=== PATIENT | male | born 1930 | race Caucasian/White ===

== ENCOUNTER 2017-04-28 13:31 | Inpatient (IN) | payer MEDICARE ==
[~2017-04-28] VITALS: Ht 172.7 cm; Wt 63.3 kg
[~2017-04-28 13:31] MED LIST: ASPIRIN325 MG PO; CEFTIN250 MG/5 M GT; COUMADIN2 MG PO; COUMADIN7.5 MG PO; DIGOXIN0.125 MG/2 GT; FLOMAX 0.4 MG0.4 MG PO; IMDUR ER TAB 3030 MG GT; ISOSORBIDE DINIT5 MG PO; LASIX40 MG PO; LISINOPRIL10 MG GT; LOPRESSOR 25 MG25 MG GT; PLAVIX 75 MG TA75 MG PO; PRILOSEC OTC20 MG PO; RAMIPRIL2.5 MG PO; SIMVASTATIN20 MG PO; ZOCOR 40 MG TAB40 MG GT; ZYRTEC10 M3 PO
[2017-04-28 16:01] LABS: HEMOGLOBIN 10.6 gm/dl (14.0-17.5); RED BLOOD COUNT 4.28 M/UL (4.20-5.50); WHITE BLOOD COUNT 19.3 K/UL (4.5-11.0)
[2017-04-28 17:49] LABS: BUN/CREATININE RATIO 61 (0-10)
[2017-04-28] MEDS ORDERED: JEVITY 1.2 CA1000 ML GT (22:06)
[2017-04-28] MEDS ORDERED: FLOMAX 0.4 MG0.4 MG PO (22:07)
[2017-04-29 06:04] LABS: HEMOGLOBIN 10.2 gm/dl (14.0-17.5); RED BLOOD COUNT 4.06 M/UL (4.20-5.50); WHITE BLOOD COUNT 17.9 K/UL (4.5-11.0)
[2017-04-29 06:21] LABS: BUN/CREATININE RATIO 53 (0-10)
[2017-04-30 05:13] LABS: HEMOGLOBIN 9.9 gm/dl (14.0-17.5); RED BLOOD COUNT 4.02 M/UL (4.20-5.50); WHITE BLOOD COUNT 16.8 K/UL (4.5-11.0)
[2017-04-30 05:31] LABS: BUN/CREATININE RATIO 36 (0-10)
[2017-05-01 05:55] LABS: BUN/CREATININE RATIO 40 (0-10)
[2017-05-02 06:34] LABS: BUN/CREATININE RATIO 34 (0-10)
[2017-05-04] MEDS ORDERED: SANTYL OINT 3030 GM EXT (11:59)
== END 2017-05-04 16:35 | disposition home or self-care (01) | DRG 871 ==
LOC: ER1 13:31 → MED SURG 4 20:26 → ZEROF 20:26 → MED SURG 4 21:48
PROVIDERS: Internal Medicine; Specialist/Technologist Athletic Trainer; ADMIT Internal Medicine
PROC: 3E0234Z Introduction of Serum, Toxoid and Vaccine into Muscle, Percutaneous Approach (ICD-10-PCS; principal; 2017-05-04)
DX: A41.9 Sepsis, unspecified organism (principal); J18.9 Pneumonia, unspecified organism; L89.323 Pressure ulcer of left buttock, stage 3; L89.313 Pressure ulcer of right buttock, stage 3; G93.40 Encephalopathy, unspecified; I50.22 Chronic systolic (congestive) heart failure; L03.317 Cellulitis of buttock; I96 Gangrene, not elsewhere classified; B96.4 Proteus (mirabilis) (morganii) as the cause of diseases classified elsewhere; E86.0 Dehydration; E87.5 Hyperkalemia; I48.2 Chronic atrial fibrillation; Z86.73 Personal history of transient ischemic attack (TIA), and cerebral infarction without residual deficits; I25.10 Atherosclerotic heart disease of native coronary artery without angina pectoris; Z88.7 Allergy status to serum and vaccine; Z87.891 Personal history of nicotine dependence; Z93.1 Gastrostomy status; Z95.810 Presence of automatic (implantable) cardiac defibrillator; Z82.49 Family history of ischemic heart disease and other diseases of the circulatory system; I11.0 Hypertensive heart disease with heart failure; Z74.01 Bed confinement status; R13.10 Dysphagia, unspecified; K21.9 Gastro-esophageal reflux disease without esophagitis; M19.90 Unspecified osteoarthritis, unspecified site; Z79.01 Long term (current) use of anticoagulants; Z79.02 Long term (current) use of antithrombotics/antiplatelets; Z79.899 Other long term (current) drug therapy; Z51.5 Encounter for palliative care; Y95 Nosocomial condition; Z66 Do not resuscitate; Z23 Encounter for immunization
CPT/HCPCS: 36415; 51702; 71010; 80048; 80053; 80202; 81001; 82140; 82272; 82550; 82553; 83605; 83874; 84484; 85025; 85027; 85610; 87040; 87045; 87046; 87070; 87077; 87186; 87205; 89055; 93005; 96361; 96365; 96366; 96367; 96375; 99285; G0008; J0610; J0696; J2543; J3370; J7030; J7040; J7050; J7070; Q2039